=== PATIENT | male | born 1955 | race Two or more races ===

== ENCOUNTER → 2020-02-15 | Outpatient (CLI) | payer BC ==
--- NOTE | 2020-02-15 16:47 | Diagnostic Imaging Report ---
EXAM: US PELVIC (NON OB) [facility] OR F/U, US RENAL RETROPERITONEAL COMP DATE: 02/15/2020 4:06 PM INDICATION: Chronic kidney disease COMPARISON: None FINDINGS: The right kidney is normal in size measuring 9.6 x 4.3 x 5.1 cm with cortical thickness of 1.4 cm. Cortical echogenicity is normal to mildly increased. There is a 2.0 x 1.8 x 2.1 cm simple cyst identified within the inferior pole the right kidney. There is no evidence for solid renal mass, hydronephrosis, or shadowing calculi. The left kidney is normal in size measuring 9.3 x 4.8 x 4.6 cm with cortical thickness of 1.8 cm. Cortical echogenicity is normal to mildly increased. There is no evidence for solid renal mass, hydronephrosis, or shadowing calculus. The urinary bladder demonstrates no significant abnormalities. Prevoid volume is 147 cc. Postvoid volume is 12 cc. IMPRESSION: Right renal cyst. Otherwise, unremarkable renal ultrasound examination. Signed by: Dr. Lucas Nunez MD on 02/15/2020 4:43 PM
== END ==
LOC: US 15:23
PROVIDERS: ATTEND Internal Medicine Nephrology
DX: N18.4 Chronic kidney disease, stage 4 (severe) (principal)
CPT/HCPCS: 76770; 76857